=== PATIENT | male | born 1975 | race Two or more races ===

== ENCOUNTER 2018-11-01 09:09 | Emergency (ER) | payer OTHER ==
[~2018-11-01] VITALS: Ht 182.9 cm; Wt 88.5 kg
[2018-11-01 13:00] VITALS: BP 134/77
== END 2018-11-01 13:28 | disposition home or self-care (01) ==
LOC: ER 09:09
DX: S50.01XA Contusion of right elbow, initial encounter (principal); S60.211A Contusion of right wrist, initial encounter; R42 Dizziness and giddiness; W19.XXXA Unspecified fall, initial encounter; Y93.89 Activity, other specified; Y92.89 Other specified places as the place of occurrence of the external cause; Y99.8 Other external cause status
CPT/HCPCS: 70450; 72100; 73080; 73110